=== PATIENT | male | born 1955 | race African-American/Black ===

== ENCOUNTER 2016-07-12 08:12 | Inpatient (IN) | payer OTHER ==
[2016-07-12 10:47] VITALS: BMI 20.3
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
[2016-07-12] MEDS ORDERED: MAGNESIUM CITRATE 300 ML BOTTLE PO PRN (14:02)
[2016-07-12] MEDS ORDERED: NICOTINE POLACRILEX 2 MG GUM BUC PRN (14:02)
[2016-07-12] MEDS ORDERED: IBUPROFEN 400 MG TABLET (FP) PO PRN (14:02)
[2016-07-12] MEDS ORDERED: MENTHOL/PHENOL 1 EACH UD MM PRN (14:02)
[2016-07-12] MEDS ORDERED: MAGNESIUM HYDROX 2400MG/30ML ORAL SUSPENSION 30 ML CUP PO PRN (14:02)
[2016-07-12] MEDS ORDERED: guaiFENesin/D-METHORPHAN HB 10 ML UNIT-DOSE CUPS PO PRN (14:02)
[2016-07-12] MEDS ORDERED: LOPERAMIDE HCL 2 MG CAPSULE PO PRN (14:02)
[2016-07-12] MEDS ORDERED: hydrOXYzine PAMOATE 25 MG CAPSULE (FP) PO PRN (14:02)
[2016-07-12] MEDS ORDERED: ACETAMINOPHEN 325 MG TABLET (FP) PO PRN (14:02)
[2016-07-12] MEDS ORDERED: diphenhydrAMINE HCL 50 MG CAPSULE PO PRN (14:02)
[2016-07-12] MEDS ORDERED: METHADONE HCL 10 MG TABLET (FOR DETOX USE ONLY) PO ONE ×2 (14:02→23:00)
[2016-07-12] MEDS ORDERED: P-EPHED 60MG/TRIPROLIDI 2.5MG TABLET PO PRN (14:02)
[2016-07-12] MEDS ORDERED: MAG HYDROX/AL HYDROX/SIMETH 30 ML UNIT-DOSE CUP PO PRN (14:02)
[2016-07-12] MEDS ORDERED: diazePAM 5 MG TABLET PO ONE (14:30)
[2016-07-12] MEDS: NICOTINE 14 MG/24 HOURS TOPICAL PATCH TD SCH (15:15)
[2016-07-12] MEDS: diazePAM 5 MG TABLET PO SCH ×2 (15:16→22:39)
[2016-07-12] MEDS: THIAMINE HCL 100 MG TABLET (FP) PO SCH (22:39)
--- NOTE | 2016-07-13 00:27 | EKG ---
Test Reason : Blood Pressure : / mmHG Vent. Rate : 077 BPM Atrial Rate : 051 BPM P-R Int : 000 ms QRS Dur : 084 ms QT Int : 376 ms P-R-T Axes : 060 016 070 degrees QTc Int : 425 ms SINUS BRADYCARDIA WITH FREQUENT PREMATURE VENTRICULAR COMPLEXES VOLTAGE CRITERIA FOR LEFT VENTRICULAR HYPERTROPHY NONSPECIFIC ST AND T WAVE ABNORMALITY ABNORMAL ECG NO PREVIOUS ECGS AVAILABLE Confirmed by RHONDA CHAPARRO MD ([id number]) on 07/13/2016 12:27:36 AM Referred By: Boaz Owens Confirmed By:RHONDA CHAPARRO MD
[2016-07-13] MEDS ORDERED: METHADONE HCL 10 MG TABLET ONE (04:23)
[2016-07-13] MEDS ORDERED: METHADONE HCL 40 MG DISPERSABLE TABLET ONE (04:24)
[2016-07-13] MEDS: diazePAM 5 MG TABLET PO SCH ×3 (05:57→22:31)
[2016-07-13] MEDS: METHADONE 120 MG, METHADONE 30 MG PO SCH (05:57)
[2016-07-13] MEDS ORDERED: METHADONE HCL 10 MG TABLET PO SCH (06:00)
[2016-07-13] MEDS: diazePAM 5 MG TABLET PO PRN (09:05)
[2016-07-13] MEDS: PRENATAL VITAMINS W/ FOLIC ACID TABLET (FP) PO SCH (09:05)
[2016-07-13] MEDS: amLODIPine BESYLATE 10 MG TABLET (FP) PO SCH (09:06)
[2016-07-13] MEDS: HYDROCHLOROTHIAZIDE 25 MG TABLET (FP) PO SCH (09:06)
[2016-07-13] MEDS: NICOTINE 14 MG/24 HOURS TOPICAL PATCH TD SCH (09:07)
[2016-07-13] MEDS ORDERED: METHADONE HCL 10 MG TABLET (FOR DETOX USE ONLY) PO SCH (10:00)
[2016-07-13 10:16] LABS: MCH 30.2 pg (25.7-33.7); MCHC 33.3 g/dl (32.0-35.9); MEAN CELL VOLUME 90.7 fl (80-96); MEAN PLT VOLUME 10.3 fl (7.5-11.1); PLATELET COUNT 117 K/MM3 (134-434); RDW 13.4 % (11.9-15.9); WHITE BLOOD COUNT 4.2 K/mm3 (4.0-10.0)
[2016-07-13 10:47] LABS: CALCIUM 9.7 mg/dL (8.5-10.1)
[2016-07-13 10:48] LABS: ALBUMIN 3.9 g/dl (3.4-5.0); BILIRUBIN,TOTAL 0.3 mg/dL (0.2-1.0); TOT PROT 7.6 g/dl (6.4-8.2)
--- NOTE | 2016-07-13 10:54 | PN ---
S CIWA - CIWA Score Nausea/Vomitin Muscle Tremors: 3 Anxiety: 3 Agitation: 3 Paroxysmal Sweats: 1-Minimal Palms Moist Orientation: 0-Oriented Tacttile Disturbances: 1-Very Mild Itch/Numbness Auditory Disturbances: 1-Very Mild Visual Disturbances: 1-Very Mild Sensitivity Headache: 2-Mild CIWA-Ar Total Score: 18 S Progress Note (SOAP) Subjective: ALERT,IRRITABLE,ANXIOUS,TREMOR,INTERRUPTED SLEEP Objective: 07/13/16 10:51 Vital Signs Temperature 98.3 F 07/13/16 10:22 Pulse Rate 50 L 07/13/16 10:22 Respiratory Rate 16 07/13/16 10:22 Blood Pressure 155/90 07/13/16 10:22 O2 Sat by Pulse Oximetry (%) 07/13/16 10:51 EKG SINUS BRADYCARDIA,VPC NO CHEST PAIN,NO SOB,NO DIZZINESS Laboratory Last Values WBC 4.2 K/mm3 (4.0-10.0) 07/13/16 06:00 RBC 4.31 M/mm3 (4.00-5.60) 07/13/16 06:00 Hgb 13.0 GM/dL (11.7-16.9) 07/13/16 06:00 Hct 39.1 % (35.4-49) 07/13/16 06:00 MCV 90.7 fl (80-96) 07/13/16 06:00 MCHC 33.3 g/dl (32.0-35.9) 07/13/16 06:00 RDW 13.4 % (11.9-15.9) 07/13/16 06:00 Plt Count 117 K/MM3 (134-434) L 07/13/16 06:00 MPV 10.3 fl (7.5-11.1) 07/13/16 06:00 Sodium 142 mmol/L (136-145) 07/13/16 06:00 Potassium 4.4 mmol/L (3.5-5.1) 07/13/16 06:00 Chloride 101 mmol/L (98-107) 07/13/16 06:00 LABS PENDING Assessment: 07/13/16 10:53 WITHDRAWAL SYMPTOM Plan: CONTINUE DETOX,REPEAT ECG TODAY
[2016-07-13] MEDS ORDERED: INFLUENZA VACCINE 45 MCG/0.5 ML (MDV 16-17) IM ONE (12:00)
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
--- NOTE | 2016-07-13 17:43 | EKG ---
Test Reason : Blood Pressure : / mmHG Vent. Rate : 049 BPM Atrial Rate : 049 BPM P-R Int : 180 ms QRS Dur : 088 ms QT Int : 418 ms P-R-T Axes : 071 028 077 degrees QTc Int : 377 ms SINUS BRADYCARDIA VOLTAGE CRITERIA FOR LEFT VENTRICULAR HYPERTROPHY NONSPECIFIC ST AND T WAVE ABNORMALITY ABNORMAL ECG WHEN COMPARED WITH ECG OF 12-JUL-2016 15:09, PREMATURE VENTRICULAR COMPLEXES ARE NO LONGER PRESENT VENT. RATE HAS DECREASED BY 28 BPM Confirmed by RHONDA CHAPARRO MD ([id number]) on 07/13/2016 5:42:46 PM Referred By: Boaz Owens Confirmed By:RHONDA CHAPARRO MD
[2016-07-13] MEDS: THIAMINE HCL 100 MG TABLET (FP) PO SCH (22:31)
[2016-07-14] MEDS ORDERED: METHADONE HCL 10 MG TABLET ONE (04:58)
[2016-07-14] MEDS ORDERED: METHADONE HCL 40 MG DISPERSABLE TABLET ONE (04:59)
[2016-07-14] MEDS: METHADONE 120 MG, METHADONE 30 MG PO SCH (05:40)
[2016-07-14] MEDS: diazePAM 5 MG TABLET PO PRN (05:44)
[2016-07-14] MEDS ORDERED: METHADONE HCL 5 MG TABLET (FOR DETOX USE ONLY) PO SCH (10:00)
[2016-07-14 10:28] LABS: URINE APPEARANCE CLEAR; URINE BILIRUBIN NEGATIVE (NEGATIVE); URINE BLOOD NEGATIVE (NEGATIVE); URINE COLOR STRAW; URINE GLUCOSE (UA) 1+ (NEGATIVE); URINE KETONE NEGATIVE (NEGATIVE); URINE LEUK ESTERASE NEGATIVE (NEGATIVE); URINE NITRITE NEGATIVE (NEGATIVE); URINE PROTEIN NEGATIVE (NEGATIVE); URINE UROBILINOGEN NEGATIVE E.U./dl (0.2-1.0)
[2016-07-14] MEDS: HYDROCHLOROTHIAZIDE 25 MG TABLET (FP) PO SCH (10:51)
[2016-07-14] MEDS: amLODIPine BESYLATE 10 MG TABLET (FP) PO SCH (10:51)
[2016-07-14] MEDS: diazePAM 5 MG TABLET PO SCH ×2 (10:51→22:46)
[2016-07-14] MEDS: PRENATAL VITAMINS W/ FOLIC ACID TABLET (FP) PO SCH (10:51)
[2016-07-14] MEDS: NICOTINE 14 MG/24 HOURS TOPICAL PATCH TD SCH (10:52)
--- NOTE | 2016-07-14 11:52 | PN ---
[facility] CIWA - CIWA Score Nausea/Vomitin Muscle Tremors: 3 Anxiety: 3 Agitation: 2 Paroxysmal Sweats: 1-Minimal Palms Moist Orientation: 0-Oriented Tacttile Disturbances: 1-Very Mild Itch/Numbness Auditory Disturbances: 1-Very Mild Visual Disturbances: 1-Very Mild Sensitivity Headache: 2-Mild CIWA-Ar Total Score: 17 BHS Progress Note (SOAP) Subjective: ALERT,IRRITABLE,ANXIOUS,INTERRUPTED SLEEP,TREMOR,PAIN IN THE BODY AND BACK Objective: 07/14/16 11:51 Vital Signs Temperature 98 F 07/14/16 09:59 Pulse Rate 53 L 07/14/16 09:59 Respiratory Rate 18 07/14/16 09:59 Blood Pressure 143/97 07/14/16 09:59 O2 Sat by Pulse Oximetry (%) 07/14/16 11:51 Laboratory Last Values WBC 4.2 K/mm3 (4.0-10.0) 07/13/16 06:00 RBC 4.31 M/mm3 (4.00-5.60) 07/13/16 06:00 Hgb 13.0 GM/dL (11.7-16.9) 07/13/16 06:00 Hct 39.1 % (35.4-49) 07/13/16 06:00 MCV 90.7 fl (80-96) 07/13/16 06:00 MCHC 33.3 g/dl (32.0-35.9) 07/13/16 06:00 RDW 13.4 % (11.9-15.9) 07/13/16 06:00 Plt Count 117 K/MM3 (134-434) L 07/13/16 06:00 MPV 10.3 fl (7.5-11.1) 07/13/16 06:00 Sodium 142 mmol/L (136-145) 07/13/16 06:00 Potassium 4.4 mmol/L (3.5-5.1) 07/13/16 06:00 Chloride 101 mmol/L (98-107) 07/13/16 06:00 Carbon Dioxide 33 mmol/L (21-32) H 07/13/16 06:00 Anion Gap 8 (8-16) 07/13/16 06:00 BUN 19 mg/dL (7-18) H 07/13/16 06:00 Creatinine 2.0 mg/dL (0.7-1.3) H 07/13/16 06:00 Creat Clearance w eGFR 34.14 (>60) 07/13/16 06:00 Random Glucose 77 mg/dL (74-106) D 07/13/16 06:00 Calcium 9.7 mg/dL (8.5-10.1) 07/13/16 06:00 Total Bilirubin 0.3 mg/dL (0.2-1.0) D 07/13/16 06:00 AST 31 U/L (15-37) D 07/13/16 06:00 ALT 27 U/L (12-78) 07/13/16 06:00 Alkaline Phosphatase 110 U/L (45-117) 07/13/16 06:00 Total Protein 7.6 g/dl (6.4-8.2) 07/13/16 06:00 Albumin 3.9 g/dl (3.4-5.0) 07/13/16 06:00 Urine Color Straw 07/14/16 07:00 Urine Appearance Clear 07/14/16 07:00 Urine pH 5.0 (5.0-8.0) 07/14/16 07:00 Ur Specific [place] 1.011 (1.001-1.035) 07/14/16 07:00 Urine Protein Negative (NEGATIVE) 07/14/16 07:00 Urine Glucose (UA) 1+ (NEGATIVE) H 07/14/16 07:00 Urine Ketones Negative (NEGATIVE) 07/14/16 07:00 Urine Blood Negative (NEGATIVE) 07/14/16 07:00 Urine Nitrite Negative (NEGATIVE) 07/14/16 07:00 Urine Bilirubin Negative (NEGATIVE) 07/14/16 07:00 Urine Urobilinogen Negative E.U./dl (0.2-1.0) 07/14/16 07:00 Ur Leukocyte Esterase Negative (NEGATIVE) 07/14/16 07:00 RPR Titer Reactive 1:1 (NONREACTIVE) H D 07/13/16 06:00 Assessment: 07/14/16 11:51 WITHDRAWAL SYMPTOM Plan: CONTINUE DETOX
[2016-07-14] MEDS: THIAMINE HCL 100 MG TABLET (FP) PO SCH (22:46)
[2016-07-14] MEDS: ZOLPIDEM TARTRATE 10 MG TABLET (PARK CARE ONLY) PO PRN (23:01)
[2016-07-15] MEDS ORDERED: METHADONE HCL 10 MG TABLET ONE (04:30)
[2016-07-15] MEDS ORDERED: METHADONE HCL 40 MG DISPERSABLE TABLET ONE (04:31)
[2016-07-15] MEDS: METHADONE 120 MG, METHADONE 30 MG PO SCH (05:04)
[2016-07-15] MEDS: diazePAM 5 MG TABLET PO PRN (05:06)
[2016-07-15] MEDS: diazePAM 5 MG TABLET PO SCH ×2 (10:42→22:42)
[2016-07-15] MEDS: NICOTINE 14 MG/24 HOURS TOPICAL PATCH TD SCH (10:42)
[2016-07-15] MEDS: amLODIPine BESYLATE 10 MG TABLET (FP) PO SCH (10:42)
[2016-07-15] MEDS: PRENATAL VITAMINS W/ FOLIC ACID TABLET (FP) PO SCH (10:42)
[2016-07-15] MEDS: HYDROCHLOROTHIAZIDE 25 MG TABLET (FP) PO SCH (10:42)
--- NOTE | 2016-07-15 12:56 | PN ---
BHS Progress Note (SOAP) Subjective: feeling better little sweats Objective: 07/15/16 12:55 Vital Signs Temperature 98.2 F 07/15/16 10:05 Pulse Rate 49 L 07/15/16 10:05 Respiratory Rate 18 07/15/16 10:05 Blood Pressure 162/81 07/15/16 10:05 O2 Sat by Pulse Oximetry (%) awake/alert ambulating no acute distress Assessment: 07/15/16 12:56 withdrawal sx Plan: continue detox increase fluids d/c in am
[2016-07-15] MEDS: ZOLPIDEM TARTRATE 10 MG TABLET (PARK CARE ONLY) PO PRN (22:42)
[2016-07-15] MEDS: THIAMINE HCL 100 MG TABLET (FP) PO SCH (22:42)
[2016-07-16] MEDS ORDERED: METHADONE HCL 10 MG TABLET ONE (04:41)
[2016-07-16] MEDS ORDERED: METHADONE HCL 40 MG DISPERSABLE TABLET ONE (04:41)
[2016-07-16] MEDS: METHADONE 120 MG, METHADONE 30 MG PO SCH (05:24)
--- NOTE | 2016-07-16 08:08 | PN ---
S Progress Note (SOAP) Subjective: ALERT,NO COMPLAINT Objective: 07/16/16 08:07 Vital Signs Temperature 97.3 F L 07/16/16 06:27 Pulse Rate 65 07/16/16 06:27 Respiratory Rate 16 07/16/16 06:27 Blood Pressure 131/63 07/16/16 06:27 O2 Sat by Pulse Oximetry (%) Assessment: 07/16/16 08:07 DETOX COMPLETED,NO WITHDRAWAL SYMPTOM Plan: DISCHARGE TODAY,FOLLOW UP WITH AFTER CARE PROGRAM ARRANGEMENT
--- NOTE | 2016-07-16 08:11 | DS ---
[facility] Detox Discharge Summary Admission Date: 07/12/16 Discharge Date: 07/16/16 - History Present History: Cocaine Dependence, Sedative Dependence Additional Comments: FOLLOW UP WITH AFTER CARE PROGRAM ARRANGEMENT AND PMD FOR MEDICAL PROBLEM Pertinent Past History: ASTHMA HYPERTESION HEPATITIS C GERD - Physical Exam Results Vital Signs: Vital Signs Temperature 97.3 F L 07/16/16 06:27 Pulse Rate 65 07/16/16 06:27 Respiratory Rate 16 07/16/16 06:27 Blood Pressure 131/63 07/16/16 06:27 O2 Sat by Pulse Oximetry (%) - Treatment Hospital Course: Detox Protocol Followed, Detoxed Safely, Responded well, Discharged Condition Good Patient has Accepted a Rehab Referral to: DECLINED - Medication Discharge Medications: Ambulatory Orders Amlodipine Besylate [Norvasc -] 10 mg PO DAILY #30 tablet 08/04/15 Hydrochlorothiazide [Hctz -] 25 mg PO DAILY #30 tablet 08/04/15 - AMA Did Patient Leave Against Medical Advice: No
--- NOTE | 2016-07-16 08:20 | DS ---
[facility] Detox Discharge Summary Admission Date: 07/12/16 Discharge Date: 07/16/16 - History Present History: Cocaine Dependence, Sedative Dependence, MMTP Pertinent Past History: ASTHMA HYPERTENSION HEPATITIS C GERD - Physical Exam Results Vital Signs: Vital Signs Temperature 97.3 F L 07/16/16 06:27 Pulse Rate 65 07/16/16 06:27 Respiratory Rate 16 07/16/16 06:27 Blood Pressure 131/63 07/16/16 06:27 O2 Sat by Pulse Oximetry (%) Pertinent Admission Physical Exam Findings: FOLLOW UP WITH AFTER CARE PROGRAM ARRANGEMENT AND PMD FOR MEDICAL PROBLEM - Treatment Patient has Accepted a Rehab Referral to: DECLINED - Medication Discharge Medications: Ambulatory Orders Amlodipine Besylate [Norvasc -] 10 mg PO DAILY #30 tablet 07/16/16 Hydrochlorothiazide [Hctz -] 25 mg PO DAILY #30 tablet 07/16/16 - AMA Did Patient Leave Against Medical Advice: No
[2016-07-16] MEDS ORDERED: METHADONE HCL 10 MG TABLET (FOR DETOX USE ONLY) PO SCH (10:00)
[2016-07-16] MEDS ORDERED: diazePAM 5 MG TABLET PO SCH (10:00)
[2016-07-16 10:27] VITALS: BP 129/77; PULSE 50; TEMP 97.9
[2016-07-17] MEDS ORDERED: METHADONE HCL 5 MG TABLET (FOR DETOX USE ONLY) PO SCH (06:00)
== END 2016-07-16 09:55 | disposition home or self-care (01) | DRG 773 ==
LOC: YASAS 08:12 → Y6N 11:48
PROVIDERS: ADMIT Internal Medicine; ATTEND Internal Medicine
PROC: HZ2ZZZZ Detoxification Services for Substance Abuse Treatment (ICD-10-PCS; principal; 2016-07-16)
DX: F11.20 Opioid dependence, uncomplicated (principal); F13.230 Sedative, hypnotic or anxiolytic dependence with withdrawal, uncomplicated; F14.20 Cocaine dependence, uncomplicated; F17.210 Nicotine dependence, cigarettes, uncomplicated; I10 Essential (primary) hypertension; J45.909 Unspecified asthma, uncomplicated; K21.9 Gastro-esophageal reflux disease without esophagitis; M54.5 Low back pain; B19.9 Unspecified viral hepatitis without hepatic coma; B18.2 Chronic viral hepatitis C
CPT/HCPCS: 36415; 71020-TC; 80053; 81003; 85027; 86593; 86780; 93005; 93010